=== PATIENT | female | born 1960 | race Caucasian/White ===

== ENCOUNTER 2018-05-01 10:39 | Emergency (ER) | payer OTHER ==
[~2018-05-01] VITALS: Ht 167.6 cm; Wt 90.7 kg
[2018-05-01] MEDS ORDERED: MODAFINIL100 MG PO (11:27)
[2018-05-01] MEDS ORDERED: IBUPROFEN800 MG PO (11:28)
[2018-05-01] MEDS ORDERED: DESVENLAFAXINE50 M3 PO (11:28)
[2018-05-01] MEDS ORDERED: LOVASTATIN20 MG PO (11:28)
[2018-05-01] MEDS ORDERED: BUPROPION XL300 MG PO (11:42)
[2018-05-01] MEDS ORDERED: LYRICA75 MG PO (11:42)
[2018-05-01] MEDS ORDERED: FOLIC ACID1 MG (11:42)
[2018-05-01] MEDS ORDERED: TECFIDERA120 MG PO (11:43)
[2018-05-01] MEDS ORDERED: MELOXICAM7.5 MG PO (12:03)
[2018-05-01] MEDS ORDERED: ULTRAM50 MG PO (12:03)
== END 2018-05-01 12:22 | disposition home or self-care (01) ==
LOC: ED 10:39
DX: S39.012A Strain of muscle, fascia and tendon of lower back, initial encounter (principal); Z88.2 Allergy status to sulfonamides; Z88.1 Allergy status to other antibiotic agents; Z79.899 Other long term (current) drug therapy; W01.10XA Fall on same level from slipping, tripping and stumbling with subsequent striking against unspecified object, initial encounter
CPT/HCPCS: 72100; 73502; 99283

== ENCOUNTER 2018-05-07 18:17 | Emergency (ER) | payer OTHER ==
[~2018-05-07] VITALS: Ht 167.6 cm; Wt 90.7 kg
[~2018-05-07 18:17] MED LIST: BUPROPION XL300 MG PO; DESVENLAFAXINE50 M3 PO; FOLIC ACID1 MG; IBUPROFEN800 MG PO; LOVASTATIN20 MG PO; LYRICA75 MG PO; MELOXICAM7.5 MG PO; MODAFINIL100 MG PO; TECFIDERA120 MG PO; ULTRAM50 MG PO
--- OUTSIDE RECORDS SUMMARY | 2018-05-07 18:22 | XMS ---
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 Care History Medical/Surgical 05/03/2018 [facility] - CHW RECEIVED ED CONSULT- HELP PATIENT FIND A PCP SINCE PATIENT PCP WAS DR BRADY. - CHW CONTACTED KAITLYN SENA AT THE CLINIC SINCE PATIENT HAS SEEN PROVIDER IN THE PAST. PROVIDER HAS STATED THAT PATIENT NEEDS AN PRODUCTION DIRECTOR. - CHW CALLED AND LEFT PATIENT A VOICEMAIL TO SEE ABOUT GETTING RECORDS FROM DR ALVAREZ OFFICE PER CLINIC REQUEST BEFORE SCHEDULING AN APT. - CHW SENT NO PCP LETTER TO PATIENT. E.D. VISIT COUNT (12 MO.) 2 [facility] TOTAL 2 NOTE: Visits indicate total known visits. ED/UCC VISIT TRACKING (12 MO.) 05/07/2018 18:18 [facility] TYPE: Emergency COMPLAINT: - COUGH,SOB 05/01/2018 10:39 [facility] TYPE: Emergency COMPLAINT: - FALL DIAGNOSES: - Fall on same level from slipping, tripping and stumbling with subsequent striking against unspecified object, initial encounter - Strain of muscle, fascia and tendon of lower back, initial encounter - Allergy status to other antibiotic agents status - Other termination clerk (current) drug therapy - Pain in left hip - Allergy status to sulfonamides status INPATIENT VISIT TRACKING (12 MO.) 06/30/2017 09:21 [facility] TYPE: Neurology DIAGNOSES: - MS Exacerbation [email or web address]
== END 2018-05-07 19:50 | disposition home or self-care (01) ==
LOC: ED 18:17
DX: J20.8 Acute bronchitis due to other specified organisms (principal); G35 Multiple sclerosis; E03.9 Hypothyroidism, unspecified; F17.200 Nicotine dependence, unspecified, uncomplicated; Z88.2 Allergy status to sulfonamides; Z88.1 Allergy status to other antibiotic agents; Z79.899 Other long term (current) drug therapy
CPT/HCPCS: 99283